=== PATIENT | female | born 1960 | race Two or more races ===

== ENCOUNTER 2019-05-02 23:51 | Inpatient (IN) | payer OTHER ==
[~2019-05-02] VITALS: Ht 157.5 cm; Wt 69.0 kg
[~2019-05-02 23:51] MED LIST: METF10002 PO
[2019-05-03] MEDS ORDERED: ACETAMINOPHEN 500 MG TABLET ONE (01:15)
--- NOTE | 2019-05-03 01:17 | NUR ---
Pt ambulated to room with this RN, pt medicated per JAN.
--- NOTE | 2019-05-03 01:25 | NUR ---
Dr. Garcia at bedside to evaluate pt.
[2019-05-03] MEDS ORDERED: ACETAMINOPHEN 500 MG TABLET PO ONE (01:30)
[2019-05-03] MEDS ORDERED: PIPERACILLIN/TAZO/PMX 3.375GM 50 ML ONE (01:50)
[2019-05-03 01:56] LABS: BASOPHILS # (AUTO) 0.02 x10^3/uL (0-0.1); BASOPHILS % (AUTO) 0 % (0-1); EOSINOPHILS # (AUTO) 0.05 x10^3/uL (0-0.4); EOSINOPHILS % (AUTO) 1 % (1-7); LYMPHOCYTES # (AUTO) 1.01 x10^3/uL (1-3.4); LYMPHOCYTES % (AUTO) 12 % (22-44); MD NO; MEAN CORPUSCULAR HEMOGLOBIN 30.3 pg (27.0-34.8); MEAN CORPUSCULAR HGB CONC 33.4 g/dL (32.4-35.8); MEAN CORPUSCULAR VOLUME 90.6 fL (80-100); MEAN PLATELET VOLUME 7.9 fL (7.4-10.4); MONOCYTES # (AUTO) 0.73 x10^3/uL (0.2-0.8); MONOCYTES % (AUTO) 8 % (2-9); NEUTROPHILS # (AUTO) 7.03 x10^3/uL (1.8-6.8); NEUTROPHILS % (AUTO) 80 % (42-75); PLATELET COUNT 198 x10^3/uL (130-400); RED BLOOD COUNT 5.24 x10^6/uL (3.82-5.3); RED CELL DISTRIBUTION WIDTH 13.1 % (9.6-15.2)
[2019-05-03] MEDS ORDERED: ACETAMINOPHEN 650 MG SUPP PR ONE (02:00)
[2019-05-03] MEDS ORDERED: VANCOMYCIN 1,400 MG in SODIUM CHLORIDE 0.9% 250 ML IV ONE (02:00)
[2019-05-03] MEDS ORDERED: VANCOMYCIN PER PHARMACY IV ONE (02:00)
[2019-05-03] MEDS ORDERED: PIPERACILLIN/TAZO/PMX 3.375GM 50 ML IVPB ONE (02:00)
[2019-05-03] MEDS ORDERED: SODIUM CHLORIDE 0.9% 1,000ML IVBOLUS ONE (02:00)
[2019-05-03 02:08] LABS: ALANINE AMINOTRANSFERASE 34 U/L (12-78); ANION GAP 7 mmol/L (5-15); CHLORIDE 103 mmol/L (98-107); CREATININE 0.71 mg/dL (0.55-1.02)
--- NOTE | 2019-05-03 02:08 | NUR ---
UA OBTAINED. MINIMAL AMOUNT PROVIDED. SAMPLE WALKED TO LAB.
[2019-05-03 02:13] LABS: ALKALINE PHOSPHATASE 116 U/L (45-117); BILIRUBIN,TOTAL 0.6 mg/dL (0.2-1.0); TOTAL PROTEIN 8.4 g/dL (6.4-8.2); TROPONIN I < 0.015 ng/mL (0.000-0.045)
[2019-05-03 02:14] LABS: MICROSCOPIC NOT IND
[2019-05-03 02:16] LABS: CULTURE INDICATED? NO
[2019-05-03] MEDS: SODIUM CHLORIDE 0.9% 1,000 ML IV SCH ×2 (03:41→18:42)
[2019-05-03 03:49] VITALS: BP 96/65
[2019-05-03] MEDS ORDERED: hydrALAzine 20 MG/ML, 1ML IVPush PRN (04:00)
[2019-05-03] MEDS ORDERED: CLINDAMYCIN IV SCH (04:00)
[2019-05-03] MEDS ORDERED: ACETAMINOPHEN 325 MG TABLET PO PRN (04:00)
[2019-05-03 04:29] LABS: HEMOGLOBIN A1C 8.6 % (4.2-6.3)
[2019-05-03] MEDS: CLINDAMYCIN PMX 600MG/50ML 50 ML IV SCH ×4 (05:16→23:13)
[2019-05-03 07:30] VITALS: BP 123/77
[2019-05-03] MEDS: INSULIN LISPRO 100 UNITS/ML, PEN SQ-INSULIN SCH ×4 (09:16→19:46)
[2019-05-03] MEDS ORDERED: EMPA25TA PO (11:39)
[2019-05-03] MEDS ORDERED: LISI10TA2 PO (11:39)
[2019-05-03 13:50] VITALS: BP 146/76
[2019-05-03 20:03] VITALS: BP 124/76
[2019-05-04 00:51] VITALS: BP 127/81
[2019-05-04] MEDS: CLINDAMYCIN PMX 600MG/50ML 50 ML IV SCH ×4 (04:54→23:02)
[2019-05-04 05:53] LABS: MEAN CORPUSCULAR HEMOGLOBIN 29.5 pg (27.0-34.8); MEAN CORPUSCULAR HGB CONC 32.8 g/dL (32.4-35.8); MEAN CORPUSCULAR VOLUME 89.9 fL (80-100); MEAN PLATELET VOLUME 7.4 fL (7.4-10.4); PLATELET COUNT 180 x10^3/uL (130-400); RED BLOOD COUNT 5.05 x10^6/uL (3.82-5.3)
[2019-05-04 05:57] LABS: ALBUMIN 3.5 g/dL (3.4-5.0); ANION GAP 7 mmol/L (5-15); CALCIUM 8.6 mg/dL (8.5-10.1); CHLORIDE 104 mmol/L (98-107)
[2019-05-04 06:01] LABS: ALANINE AMINOTRANSFERASE 39 U/L (12-78); ALKALINE PHOSPHATASE 82 U/L (45-117); BILIRUBIN,TOTAL 0.8 mg/dL (0.2-1.0); CREATININE 0.53 mg/dL (0.55-1.02); TOTAL PROTEIN 7.5 g/dL (6.4-8.2)
[2019-05-04 06:16] LABS: BASOPHILS # (AUTO) 0.04 x10^3/uL (0-0.1); BASOPHILS % (AUTO) 1 % (0-1); EOSINOPHILS # (AUTO) 0.09 x10^3/uL (0-0.4); EOSINOPHILS % (AUTO) 1 % (1-7); LYMPHOCYTES % (AUTO) 32 % (22-44); MD SCAN; MONOCYTES # (AUTO) 0.75 x10^3/uL (0.2-0.8); MONOCYTES % (AUTO) 11 % (2-9); NEUTROPHILS # (AUTO) 3.84 x10^3/uL (1.8-6.8); NEUTROPHILS % (AUTO) 56 % (42-75)
[2019-05-04] MEDS: INSULIN LISPRO 100 UNITS/ML, PEN SQ-INSULIN SCH ×4 (07:00→20:07)
[2019-05-04 07:45] VITALS: BP 124/84
[2019-05-04] MEDS: SODIUM CHLORIDE 0.9% 1,000 ML IV SCH (10:25)
[2019-05-04 14:06] VITALS: BP 135/85
[2019-05-04] MEDS ORDERED: OMNIPAQUE 350 MG/ML, 75ML BOTTLE ONE (15:06)
[2019-05-04 19:01] VITALS: BP 117/77
[2019-05-05 02:14] VITALS: BP 130/81
[2019-05-05] MEDS: SODIUM CHLORIDE 0.9% 1,000 ML IV SCH (04:49)
[2019-05-05] MEDS: CLINDAMYCIN PMX 600MG/50ML 50 ML IV SCH (04:49)
[2019-05-05 06:02] LABS: BASOPHILS # (AUTO) 0.03 x10^3/uL (0-0.1); BASOPHILS % (AUTO) 1 % (0-1); EOSINOPHILS # (AUTO) 0.13 x10^3/uL (0-0.4); EOSINOPHILS % (AUTO) 2 % (1-7); LYMPHOCYTES # (AUTO) 2.33 x10^3/uL (1-3.4); LYMPHOCYTES % (AUTO) 41 % (22-44); MD NO; MEAN CORPUSCULAR HEMOGLOBIN 30.2 pg (27.0-34.8); MEAN CORPUSCULAR HGB CONC 32.9 g/dL (32.4-35.8); MEAN CORPUSCULAR VOLUME 91.6 fL (80-100); MEAN PLATELET VOLUME 7.6 fL (7.4-10.4); MONOCYTES # (AUTO) 0.72 x10^3/uL (0.2-0.8); MONOCYTES % (AUTO) 13 % (2-9); NEUTROPHILS % (AUTO) 44 % (42-75); PLATELET COUNT 176 x10^3/uL (130-400); RED BLOOD COUNT 4.92 x10^6/uL (3.82-5.3); RED CELL DISTRIBUTION WIDTH 13.4 % (9.6-15.2)
[2019-05-05 06:17] LABS: CHLORIDE 105 mmol/L (98-107)
[2019-05-05 06:26] LABS: ANION GAP 12 mmol/L (5-15); CALCIUM 8.7 mg/dL (8.5-10.1); CREATININE 0.57 mg/dL (0.55-1.02)
[2019-05-05] MEDS: INSULIN LISPRO 100 UNITS/ML, PEN SQ-INSULIN SCH (07:00)
[2019-05-05 07:20] VITALS: BP 132/80
[2019-05-05] MEDS ORDERED: CLIN300C3 PO (09:23)
== END 2019-05-05 11:30 | disposition home or self-care (01) | DRG 872 ==
LOC: ED 05-03 03:00 → 3NE 05-03 03:10 → DCLOUNGE 05-05 11:25
PROVIDERS: ADMIT Family Medicine; ATTEND Family Medicine
DX: A41.9 Sepsis, unspecified organism (principal); E11.65 Type 2 diabetes mellitus with hyperglycemia; I10 Essential (primary) hypertension; K02.9 Dental caries, unspecified; Z79.899 Other long term (current) drug therapy; E86.0 Dehydration
CPT/HCPCS: 36415; 70100; 70487; 71045; 80048; 80053; 81003; 82962; 83036; 83605; 84145; 84484; 85025; 87040; 96365; 96368; G0378; J2543; J3370; Q9967; J1815; J7030; J7050

== ENCOUNTER 2019-05-17 16:47 | Emergency (ER) | payer OTHER ==
[~2019-05-17] VITALS: Ht 149.9 cm; Wt 70.3 kg
[~2019-05-17 16:47] MED LIST changes: +CLIN300C3 PO; +EMPA25TA PO; +LISI10TA2 PO
[2019-05-17 16:54] VITALS: BP 124/75
[2019-05-17] MEDS ORDERED: LIDOCAINE 1%, 10ML INFIL ONE (18:30)
--- NOTE | 2019-05-17 19:05 | NUR ---
PATIENT PRESENTS TO ED TODAY FOR LUMP IN VAGINAL AREA X SEVERAL YEARS, WORSENING STARTED X 1 DAY, PA AT BEDSIDE FOR PELVIC EXAM, FAMILY AT BEDSIDE, CALL LIGHT WITHIN REACH, NADN, AWAITING FURTHER ORDERS.
[2019-05-17] MEDS ORDERED: ATOR-2 PO (19:07)
[2019-05-17] MEDS ORDERED: INSU100V8 SQ (19:08)
[2019-05-17] MEDS ORDERED: SULFAMETH./TRIMETHOPRIM DS 800MG/160MG TABLET ONE (19:12)
[2019-05-17] MEDS ORDERED: CEPHALEXIN 500 MG CAPSULE ONE (19:12)
[2019-05-17] MEDS ORDERED: LIDOCAINE-MPF 1%, 5ML ONE (19:26)
[2019-05-17] MEDS ORDERED: SULFAMETH./TRIMETHOPRIM DS 800MG/160MG TABLET PO ONE (19:30)
[2019-05-17] MEDS ORDERED: HYDROcodone/APAP 5/325 TABLET PO ONE (19:30)
[2019-05-17] MEDS ORDERED: HYDROcodone/APAP 5/325 TABLET ONE (19:30)
[2019-05-17] MEDS ORDERED: CEPHALEXIN 500 MG CAPSULE PO ONE (19:30)
--- NOTE | 2019-05-17 19:50 | NUR ---
PA AT BEDSIDE FOR I&D.
--- NOTE | 2019-05-17 20:06 | NUR ---
Patient/Caregiver given discharge instructions and they have confirmed that they understand the instructions. Patient ambulatory with steady gait. Addendum: 05/17/19 at 2006 by MARLA PATIENT TO HAVE FAMILY DRIVE PATIENT HOME FOR SAFE DC.
== END 2019-05-17 20:08 | disposition home or self-care (01) ==
LOC: ED 18:51
DX: N75.1 Abscess of Bartholin's gland (principal)
CPT/HCPCS: 56420; 99284; J3490; 99283

== ENCOUNTER 2019-05-26 22:13 | Emergency (ER) | payer OTHER ==
[~2019-05-26] VITALS: Ht 149.9 cm; Wt 71.8 kg
[~2019-05-26 22:13] MED LIST changes: +ATOR-2 PO; +INSU100V8 SQ
--- NOTE | 2019-05-26 22:51 | NUR ---
PT STATES SHE HAS HAD A CYST ON THE BARTHOLIN GLAND OF THE VAGINA 4 TIMES IN THE LAST MONTH. PT HAS COME TO THIS ED FOR CYST DRAINAGE 4 TIMES AND CYST CONTINUES TO REFILL WITH FLUID.
[2019-05-26] MEDS ORDERED: LIDOCAINE-MPF 1%, 5ML ONE ×2 (23:06→23:18)
[2019-05-26] MEDS ORDERED: HYDROmorphone 2 MG/ML, 1ML ONE (23:07)
--- NOTE | 2019-05-26 23:12 | NUR ---
PT AMBUATORY TO THE BATHROOM WITH STEADY GAIT. PT STATES SHE IS UNABLE TO URINATE AT THIS TIME
--- NOTE | 2019-05-26 23:17 | NUR ---
PT RESTING ON GURNEY AND MEDICATED FOR PAIN PER EMAR. PT NERVOUS ABOUT PROCEDURE. I&D SET UP COMPLETE.
[2019-05-26] MEDS ORDERED: L.E.T SOLUTION TP ONE ×2 (23:18→23:30)
[2019-05-26] MEDS ORDERED: HYDROmorphone 2 MG/ML, 1ML IM ONE (23:30)
[2019-05-26] MEDS ORDERED: LIDOCAINE-MPF 1%, 5ML INFIL ONE (23:30)
[2019-05-27 00:03] VITALS: BP 115/66
--- NOTE | 2019-05-27 00:27 | NUR ---
ED PA in room for I&D procedure.
== END 2019-05-27 00:46 | disposition home or self-care (01) ==
LOC: ED 05-27 00:41
DX: N75.1 Abscess of Bartholin's gland (principal); I10 Essential (primary) hypertension; E11.9 Type 2 diabetes mellitus without complications
CPT/HCPCS: 56420; 96372; 99283; J1170

== ENCOUNTER 2020-02-04 21:44 | Emergency (ER) | payer OTHER ==
[~2020-02-04] VITALS: Ht 157.5 cm; Wt 68.5 kg
[2020-02-04 21:47] VITALS: BP 160/87
[2020-02-04] MEDS ORDERED: KETOROLAC 30 MG/1 ML ONE (22:20)
--- NOTE | 2020-02-04 22:28 | NUR ---
PT REFUSED TORADOL SHOT. STATES SHE HAS NO PAIN AT THIS TME. PROVIDER NOTIFIED.
[2020-02-04] MEDS ORDERED: KETOROLAC 30 MG/1 ML IM ONE (22:30)
== END 2020-02-04 23:16 ==
LOC: ED 22:18
DX: J02.8 Acute pharyngitis due to other specified organisms (principal); B97.89 Other viral agents as the cause of diseases classified elsewhere; E11.65 Type 2 diabetes mellitus with hyperglycemia; I10 Essential (primary) hypertension
CPT/HCPCS: 71045; 87081; 87880; 99284

== ENCOUNTER 2020-06-19 20:47 | Emergency (ER) | payer OTHER ==
[~2020-06-19] VITALS: Ht 152.4 cm; Wt 69.0 kg
[2020-06-19] MEDS ORDERED: ACETAMINOPHEN 500 MG TABLET ONE (22:02)
[2020-06-19] MEDS ORDERED: ACETAMINOPHEN 500 MG TABLET PO ONE (22:30)
[2020-06-19 22:48] LABS: BASOPHILS # (AUTO) 0.04 x10^3/uL (0-0.1); BASOPHILS % (AUTO) 1 % (0-1); EOSINOPHILS # (AUTO) 0.13 x10^3/uL (0-0.4); EOSINOPHILS % (AUTO) 3 % (1-7); LYMPHOCYTES # (AUTO) 1.23 x10^3/uL (1-3.4); LYMPHOCYTES % (AUTO) 24 % (22-44); MD NO; MEAN CORPUSCULAR HEMOGLOBIN 30.8 pg (27.0-34.8); MEAN CORPUSCULAR HGB CONC 33.6 g/dL (32.4-35.8); MEAN CORPUSCULAR VOLUME 91.7 fL (80-100); MEAN PLATELET VOLUME 7.6 fL (7.4-10.4); MONOCYTES # (AUTO) 0.38 x10^3/uL (0.2-0.8); MONOCYTES % (AUTO) 7 % (2-9); NEUTROPHILS # (AUTO) 3.41 x10^3/uL (1.8-6.8); NEUTROPHILS % (AUTO) 66 % (42-75); PLATELET COUNT 187 x10^3/uL (130-400); RED BLOOD COUNT 4.91 x10^6/uL (3.82-5.3); RED CELL DISTRIBUTION WIDTH 13.1 % (9.6-15.2)
[2020-06-19 22:56] LABS: ALANINE AMINOTRANSFERASE 23 U/L (12-78); ALBUMIN 3.7 g/dL (3.4-5.0); ANION GAP 3 mmol/L (5-15); CALCIUM 8.4 mg/dL (8.5-10.1); CHLORIDE 107 mmol/L (98-107); CREATININE 1.05 mg/dL (0.55-1.02)
[2020-06-19 22:59] LABS: ALKALINE PHOSPHATASE 92 U/L (45-117); BILIRUBIN,TOTAL 0.4 mg/dL (0.2-1.0); TOTAL PROTEIN 7.6 g/dL (6.4-8.2)
[2020-06-19 23:21] LABS: MICROSCOPIC NOT IND
--- NOTE | 2020-06-19 23:30 | NUR ---
LATE ENTRY: PT CAME INTO ED TODAY FOR LEFT FOOT PAIN AND SWELLING, PT HAS DIFFICULTY WALKING, PRESSURE CAUSES INCREASED PAIN, SWELLING NOTED, PULSES AND CMS INTACT. WCTM.
--- NOTE | 2020-06-19 23:36 | NUR ---
DAVIN RIVERA AT BS. PT TO BE DC'D. [place]. NAD, VSS, NO CHANGE IN CONDITION
[2020-06-20 00:03] VITALS: BP 134/82
--- NOTE | 2020-06-20 00:04 | NUR ---
Patient/SPOUSE given discharge instructions and they have confirmed that they understand the instructions. Patient TRASNFERRED STEADILY TO WHEELCHAIR. NAD, SKIN COLOR WNL, WARM AND DRY, NO PT BELONGINGS LEFT IN ROOM AFTER DC.
== END 2020-06-20 00:19 | disposition home or self-care (01) ==
LOC: ED 06-20 00:08
DX: M19.172 Post-traumatic osteoarthritis, left ankle and foot (principal); G89.11 Acute pain due to trauma; M79.672 Pain in left foot; R50.9 Fever, unspecified; R07.9 Chest pain, unspecified
CPT/HCPCS: 36415; 71045; 80053; 81003; 85025; 99284